=== PATIENT | male | born 1980 | race Caucasian/White ===

== ENCOUNTER 2020-01-06 12:33 | Emergency (ER) | payer OTHER ==
[~2020-01-06] VITALS: Ht 175.3 cm; Wt 99.8 kg
[2020-01-06] MEDS ORDERED: FLEXERIL PO (13:07)
[2020-01-06] MEDS ORDERED: LIDODERM1 EACH TRANSDERM (13:07)
[2020-01-06] MEDS ORDERED: MEDROLDOSEPACK PO (13:07)
[2020-01-06] MEDS ORDERED: NORCO 5-325 TA1 EAC2 PO (13:07)
[2020-01-06 13:23] VITALS: BP 136/86
== END 2020-01-06 13:23 | disposition home or self-care (01) ==
LOC: M.ERS 12:33
DX: M54.5 Low back pain (principal); F17.210 Nicotine dependence, cigarettes, uncomplicated

== ENCOUNTER 2021-03-11 13:12 | Emergency (ER) | payer OTHER ==
[~2021-03-11] VITALS: Ht 175.3 cm; Wt 104.3 kg
[~2021-03-11 13:12] MED LIST: FLEXERIL PO; LIDODERM1 EACH TRANSDERM; MEDROLDOSEPACK PO; NORCO 5-325 TA1 EAC2 PO
[2021-03-11] MEDS ORDERED: ZPAK PO (14:46)
[2021-03-11] MEDS ORDERED: PREDNISONE 20 M20 M1 PO (14:46)
[2021-03-11 14:50] VITALS: BP 158/97
== END 2021-03-11 14:51 | disposition home or self-care (01) ==
LOC: M.ERS 13:12
DX: J40 Bronchitis, not specified as acute or chronic (principal); Z20.822 Contact with and (suspected) exposure to COVID-19; F17.200 Nicotine dependence, unspecified, uncomplicated